=== PATIENT | female | born 1970 | race Caucasian/White ===

== ENCOUNTER 2025-10-06 15:11 | Emergency (ER) | payer MEDICAID ==
[~2025-10-06] VITALS: Ht 152.4 cm; Wt 135.6 kg
[2025-10-06] MEDS ORDERED: HALOPERIDOL LACTATE INJ 5 MG/ML VIAL ONE (16:08)
[2025-10-06] MEDS ORDERED: LORAZEPAM INJ 2 MG/ML VIAL ONE ×2 (16:08→18:04)
[2025-10-06] MEDS: LORAZEPAM INJ 2 MG/ML VIAL IM ONE ×2 (16:15→18:14)
[2025-10-06] MEDS: HALOPERIDOL LACTATE INJ 5 MG/ML VIAL IM ONE (16:16)
[2025-10-06 18:40] LABS: PLATELET COUNT (AUTO) 225 K/uL (150-450); RED BLOOD CELL COUNT(AUTO) 4.23 MIL/uL (4.0-5.2); RED CELL DISTRIBUTION WIDTH 13.7 % (11.5-15.0); WHITE BLOOD COUNT (AUTO) 13.4 K/uL (4.3-11.0)
[2025-10-06 18:48] LABS: CALCIUM, SERUM 8.7 mg/dL (8.5-10.1); CREATININE 1.0 mg/dL (0.6-1.3); SODIUM SERUM 140 mmol/L (136-145); UREA NITROGEN, BLOOD 10 mg/dL (7-18)
[2025-10-06 18:51] LABS: APPEARANCE,URINE CLEAR (CLEAR); BLOOD, URINE Negative Ery/uL (NEGATIVE); LEUKOCYTE ESTERASE ,URINE Small (NEGATIVE); NITRITE, URINE NEGATIVE (NEGATIVE); UGLUCOSE Negative (NEGATIVE)
[2025-10-06 18:53] LABS: ASPARTATE AMINOTRANSFERASE 22 U/L (15-37); TOTAL PROTEIN, SERUM 7.1 g/dL (6.4-8.2)
[2025-10-06 18:57] LABS: AMPHETAMINE, URINE NEGATIVE (NEGATIVE); BARBITURATE, URINE NEGATIVE (NEGATIVE); BENZODIAZEPINE, URINE NEGATIVE (NEGATIVE); CANNABINOID, URINE NEGATIVE (NEGATIVE); COCCAINE, URINE NEGATIVE (NEGATIVE); OPIATE, URINE NEGATIVE (NEGATIVE)
[2025-10-06 18:58] LABS: ADD URINE CULTURE YES; SQUAMOUS EPITHELIAL CELL,UR Few /HPF (None Seen)
[2025-10-06] MEDS ORDERED: POTA20TA83 PO (19:03)
[2025-10-06] MEDS ORDERED: NITR100C6 PO (19:03)
[2025-10-06 19:58] VITALS: TEMP 97.9
[2025-10-07] MEDS ORDERED: LORAZEPAM 1 MG TABLET ONE (01:07)
[2025-10-07] MEDS: LORAZEPAM 1 MG TABLET PO ONE (01:09)
[2025-10-07 05:49] VITALS: BP 113/88; O2SAT 96
[2025-10-07] MEDS: POTASSIUM CHLORIDE 20 MEQ TAB.PRT.SR PO ONE (09:09)
[2025-10-07] MEDS ORDERED: OLANZAPINE 10 MG VIAL IM ONE (10:56)
[2025-10-07] MEDS: OLANZAPINE 10 MG VIAL IM ONE (10:59)
== END 2025-10-07 11:51 | disposition home or self-care (01) ==
LOC: ER 15:15
DX: N39.0 Urinary tract infection, site not specified (principal); F25.9 Schizoaffective disorder, unspecified; F31.9 Bipolar disorder, unspecified; E87.6 Hypokalemia; Z88.5 Allergy status to narcotic agent; Z88.2 Allergy status to sulfonamides; Z88.0 Allergy status to penicillin; Z79.899 Other long term (current) drug therapy
CPT/HCPCS: 99285; 96372 ×2; 85025; 80048; 87086; 80076; 81001; 36415; 80143; 80307; J2060 ×2; J1200; J1630; J3490

== ENCOUNTER 2025-10-18 19:51 | Inpatient (IN) | payer MEDICAID ==
[~2025-10-18] VITALS: Ht 152.4 cm; Wt 135.6 kg
[~2025-10-18 19:51] MED LIST: NITR100C6 PO; POTA20TA83 PO
[2025-10-18] MEDS ORDERED: LORAZEPAM INJ 2 MG/ML VIAL ONE (20:22)
[2025-10-18] MEDS: LORAZEPAM INJ 2 MG/ML VIAL IM ONE (20:28)
[2025-10-18] MEDS ORDERED: TDAP [DIPH/PERTUSSIS/TET] 0.5 ML VIAL IM ONE (20:29)
[2025-10-18] MEDS ORDERED: HALOPERIDOL LACTATE INJ 5 MG/ML VIAL IM ONE (20:30)
[2025-10-18] MEDS: TDAP [DIPH/PERTUSSIS/TET] 0.5 ML VIAL IM ONE (20:34)
[2025-10-18 20:41] LABS: PLATELET COUNT (AUTO) 216 K/uL (150-450); RED BLOOD CELL COUNT(AUTO) 4.21 MIL/uL (4.0-5.2); RED CELL DISTRIBUTION WIDTH 14.6 % (11.5-15.0); WHITE BLOOD COUNT (AUTO) 9.3 K/uL (4.3-11.0)
[2025-10-18 20:48] LABS: CALCIUM, SERUM 9.1 mg/dL (8.5-10.1); CREATININE 0.9 mg/dL (0.6-1.3); SODIUM SERUM 144 mmol/L (136-145); UREA NITROGEN, BLOOD 18 mg/dL (7-18)
[2025-10-18 20:55] LABS: ASPARTATE AMINOTRANSFERASE 13 U/L (15-37); TOTAL PROTEIN, SERUM 7.2 g/dL (6.4-8.2)
[2025-10-18] MEDS ORDERED: ACETAMINOPHEN 325 MG TABLET ONE (20:55)
[2025-10-18 20:56] LABS: ALCOHOL, BLOOD < 3 mg/dL (0-10)
[2025-10-18] MEDS: ACETAMINOPHEN 325 MG TABLET PO ONE (21:06)
[2025-10-18 21:27] LABS: APPEARANCE,URINE CLEAR (CLEAR); BLOOD, URINE NEGATIVE Ery/uL (NEGATIVE); LEUKOCYTE ESTERASE ,URINE 1+ (NEGATIVE); NITRITE, URINE NEGATIVE (NEGATIVE); UGLUCOSE NEGATIVE (NEGATIVE)
[2025-10-18 21:30] LABS: PREGNANCY TEST URINE QUAL NEGATIVE (NEGATIVE)
[2025-10-18 21:38] LABS: ADD URINE CULTURE YES; SQUAMOUS EPITHELIAL CELL,UR Moderate /HPF (None Seen)
[2025-10-18 21:40] LABS: AMPHETAMINE, URINE NEGATIVE (NEGATIVE); BARBITURATE, URINE NEGATIVE (NEGATIVE); BENZODIAZEPINE, URINE NEGATIVE (NEGATIVE); CANNABINOID, URINE NEGATIVE (NEGATIVE); COCCAINE, URINE NEGATIVE (NEGATIVE); OPIATE, URINE NEGATIVE (NEGATIVE)
[2025-10-18] MEDS ORDERED: LEVOFLOXACIN (250MG) 250 MG TABLET ONE (22:02)
[2025-10-18] MEDS: LEVOFLOXACIN (250MG) 250 MG TABLET PO ONE (22:06)
[2025-10-18] MEDS ORDERED: OLANZAPINE 10 MG VIAL IM ONE (22:34)
[2025-10-18] MEDS: OLANZAPINE 10 MG VIAL IM ONE (22:46)
[2025-10-18] MEDS ORDERED: MIDAZOLAM HCL 2 MG/2ML VIAL ONE (23:24)
[2025-10-18] MEDS: MIDAZOLAM HCL 2 MG/2ML VIAL IM ONE (23:33)
[2025-10-19] MEDS ORDERED: MIDAZOLAM 50 MG/10 ML VIAL ONE (00:46)
[2025-10-19] MEDS ORDERED: MIDAZOLAM HCL 5 MG/5ML VIAL ONE (00:47)
[2025-10-19] MEDS: MIDAZOLAM HCL 2 MG/2ML VIAL IM ONE (00:57)
[2025-10-19 08:45] VITALS: BP 119/64; TEMP 97.9; O2SAT 100
[2025-10-19] MEDS ORDERED: MAGNESIUM HYDROXIDE 30 ML UDC PO PRN (09:00)
[2025-10-19] MEDS ORDERED: MAG HYDROX/AL HYDROX/SIMETH 30 ML UDC PO PRN (09:00)
[2025-10-19] MEDS ORDERED: QUETIAPINE FUMARATE 25 MG TABLET PO PRN (09:00)
[2025-10-19] MEDS ORDERED: ZOLPIDEM TARTRATE 5 MG TABLET PO PRN (09:00)
[2025-10-19] MEDS ORDERED: IBUP-1957 PO (09:01)
[2025-10-19] MEDS ORDERED: MULT-594 PO (09:01)
[2025-10-19] MEDS ORDERED: LORA-259 PO (09:01)
[2025-10-19] MEDS ORDERED: BUSP10TA35 PO (09:01)
[2025-10-19] MEDS ORDERED: METH57CR22 TP (09:01)
[2025-10-19] MEDS ORDERED: OXYC-128 PO (09:01)
[2025-10-19] MEDS ORDERED: CLON0.5T4 PO (09:01)
[2025-10-19] MEDS ORDERED: BUSP10TA3 PO (09:01)
[2025-10-19] MEDS ORDERED: ACET325T53 PO (09:01)
[2025-10-19] MEDS ORDERED: CALC355O18 (09:01)
[2025-10-19] MEDS ORDERED: LACT-47 PO (09:01)
[2025-10-19] MEDS ORDERED: PREG50CA PO (09:01)
[2025-10-19] MEDS ORDERED: POLY17PO4 PO (09:01)
[2025-10-19] MEDS ORDERED: FLUO40CA8 PO (09:01)
[2025-10-19] MEDS ORDERED: ARIP20TA4 PO (09:01)
[2025-10-19] MEDS ORDERED: [UNRECOGNIZED DRUG - OTHER] PO (09:01)
[2025-10-19] MEDS: LEVOFLOXACIN (250MG) 250 MG TABLET PO SCH (10:21)
[2025-10-19 16:00] VITALS: BP 116/73; TEMP 97.9; O2SAT 100
[2025-10-19] MEDS: ARIPIPRAZOLE 5 MG TABLET PO SCH (16:00)
[2025-10-19] MEDS: LITHIUM CARBONATE 150 MG CAPSULE PO SCH (16:00)
[2025-10-19] MEDS: ACETAMINOPHEN 325 MG TABLET PO PRN (18:07)
[2025-10-19 20:30] VITALS: BP 113/74; TEMP 97.9; O2SAT 96
[2025-10-19] MEDS: ZOLPIDEM TARTRATE 5 MG TABLET PO PRN (21:15)
[2025-10-19] MEDS ORDERED: IBUPROFEN 800 MG TABLET PO PRN (22:30)
[2025-10-19] MEDS ORDERED: POLYETHYLENE GLYCOL 3350 17 GM POWD.PACK PO PRN (22:30)
[2025-10-19] MEDS ORDERED: ACETAMINOPHEN 325 MG TABLET PO PRN (22:30)
[2025-10-19] MEDS: oxyCODONE/APAP (5/325 MG) 1 UDTAB TABLET PO PRN (23:15)
[2025-10-20] MEDS ORDERED: IBUPROFEN 400 MG TABLET PO PRN (07:00)
[2025-10-20 08:00] VITALS: BP 109/66; TEMP 97.8; O2SAT 97
[2025-10-20] MEDS ORDERED: METHYL SALICYLATE/MENTHOL 28GM 28 GM TUBE TP PRN (08:30)
[2025-10-20] MEDS: ENSURE CLEAR 237 ML LIQUID (MIX BERRY) PO SCH (09:38)
[2025-10-20] MEDS: MULTIVITAMINS,THERAGRAN 1 UDTAB TABLET PO SCH (09:38)
[2025-10-20 16:00] VITALS: BP 115/67; TEMP 97.8; O2SAT 95
[2025-10-20] MEDS: PREGABALIN 25 MG CAPSULE PO SCH (16:54)
[2025-10-20 17:39] LABS: ASPARTATE AMINOTRANSFERASE 14.0 U/L (15-37); CALCIUM, SERUM 8.9 mg/dL (8.5-10.1); CREATININE 0.6 mg/dL (0.6-1.3); SODIUM SERUM 142.0 mmol/L (136-145); TOTAL PROTEIN, SERUM 7.3 g/dL (6.4-8.2); UREA NITROGEN, BLOOD 13.0 mg/dL (7-18)
[2025-10-20 17:53] LABS: LDL 85 mg/dL (0-99)
[2025-10-20 20:57] VITALS: BP 112/75; TEMP 98.4; O2SAT 95
[2025-10-21 08:00] VITALS: BP 118/79; TEMP 97.7; O2SAT 96
[2025-10-21] MEDS: NYSTATIN TOP POWDER 15 GM BOTTLE TP SCH (08:31)
[2025-10-21 16:00] VITALS: BP 100/69; TEMP 98.2; O2SAT 96
[2025-10-21 21:11] VITALS: BP 119/73; TEMP 98.6; O2SAT 98
[2025-10-22 08:00] VITALS: BP 124/74; TEMP 98.1; O2SAT 98
[2025-10-22 16:00] VITALS: BP 105/80; TEMP 98.3; O2SAT 98
[2025-10-22 21:07] VITALS: BP 113/67; TEMP 98.6; O2SAT 97
[2025-10-22] MEDS: LITHIUM CARBONATE 150 MG CAPSULE PO SCH (21:14)
[2025-10-23 08:00] VITALS: BP 134/69; TEMP 97.9; O2SAT 100
[2025-10-23 16:00] VITALS: BP 106/66; TEMP 97.7; O2SAT 97
[2025-10-23 20:58] VITALS: BP 101/59; TEMP 98.2; O2SAT 95
[2025-10-24 08:00] VITALS: BP 123/84; TEMP 98; O2SAT 99
[2025-10-24] MEDS: ARIPIPRAZOLE 5 MG TABLET PO SCH (08:47)
[2025-10-24 12:39] VITALS: BP 117/76; TEMP 98.3; O2SAT 99
[2025-10-24 16:12] VITALS: BP 110/73; TEMP 98.6; O2SAT 95
[2025-10-24 21:03] VITALS: BP 111/68; TEMP 98.2; O2SAT 96
[2025-10-25 08:00] VITALS: BP 118/72; TEMP 97.9; O2SAT 100
[2025-10-25 16:00] VITALS: BP 107/82; TEMP 97.9; O2SAT 98
[2025-10-25 21:15] VITALS: BP 110/69; TEMP 98.2; O2SAT 100
[2025-10-26 08:00] VITALS: BP 100/57; TEMP 97.9; O2SAT 100
[2025-10-26 08:12] VITALS: BP 100/57; TEMP 97.9; O2SAT 100
== END 2025-10-26 12:45 | DRG 751 ==
LOC: ER 19:53 → GPS 10-19 08:13
PROVIDERS: ADMIT Psychiatry & Neurology Psychiatry; ATTEND Nurse Practitioner Family
DX: F39 Unspecified mood [affective] disorder (principal); E44.1 Mild protein-calorie malnutrition; F29 Unspecified psychosis not due to a substance or known physiological condition; E88.09 Other disorders of plasma-protein metabolism, not elsewhere classified; N39.0 Urinary tract infection, site not specified; B96.89 Other specified bacterial agents as the cause of diseases classified elsewhere; Z68.43 Body mass index [BMI] 50.0-59.9, adult; F10.21 Alcohol dependence, in remission; E66.9 Obesity, unspecified; Z88.0 Allergy status to penicillin; Z87.891 Personal history of nicotine dependence; Z88.2 Allergy status to sulfonamides; Z89.511 Acquired absence of right leg below knee; F31.9 Bipolar disorder, unspecified; F20.9 Schizophrenia, unspecified; Z71.3 Dietary counseling and surveillance; Z79.899 Other long term (current) drug therapy
CPT/HCPCS: 36415; 80048-TC; 80053-TC; 80061-TC; 80076-TC; 80178-TC; 81001; 84703-TC; 85025-TC; 87081-TC; 87086-TC; 90715; 97110-TC; 97112-TC; 97530-TC; G0480; J1200; J2060; J2250; J3490